=== PATIENT | female | born 1950 | race Caucasian/White ===

== ENCOUNTER → 2018-02-18 | Outpatient (CLI) | payer OTHER ==
--- NOTE | 2018-02-20 09:35 | MM ---
Reason for exam: screening (asymptomatic). Last mammogram was performed 2 years ago. History: Patient is postmenopausal. Benign excisional biopsy of the right breast, 2001. Took estrogen for 7 years beginning at age 41. Physical Findings: A clinical breast exam by your physician is recommended on an annual basis and results should be correlated with mammographic findings. MG Screening Mammo w CAD Bilateral CC and MLO view(s) were taken. Prior study comparison: February 14, 2016, bilateral MG screening mammo w CAD. April 04, 2014, bilateral MG screening mammo w CAD. There are scattered fibroglandular densities. No significant changes when compared with prior studies. ASSESSMENT: Benign, BI-RAD 2 RECOMMENDATION: Routine screening mammogram of both breasts in 1 year.
== END | disposition home or self-care (01) ==
LOC: RADMAMWWP 12:57
PROVIDERS: ATTEND Family Medicine
DX: Z12.31 Encounter for screening mammogram for malignant neoplasm of breast (principal)
CPT/HCPCS: 77067

== ENCOUNTER → 2018-08-24 | Outpatient (CLI) | payer OTHER ==
--- NOTE | 2018-08-24 19:43 | P.STRESS ---
- Stress Test Note Stress Test Results/Findings: Exam Performed: stress test Exam Date: 08/24/18 Reason for Exam: Chest Pain Height: 5 ft 5 in Weight: 76.204 kg Protocol: Jm Stage: 2 Duration of Exercise: 5:22 Resting Heart Rate: 64 Resting Blood Pressure: 145/101 Maximum Achieved Heart Rate: 146 Maximum Achieved Blood Pressure: 186/96 85% PMHR: 131 100% PMHR: 154 METS: 7.1 Technologist Comment: Stress Test Results/Findings: Baseline heart rate 64 beats a minute, Baseline blood pressure 1 4400 mmHg baseline 20 ECG shows sinus rhythm with normal cardiac intervals Exercise duration of 5 minutes 22 seconds normal heart rate and blood pressure response to excise No ECG or so ischemia No arrhythmias Low average exercise capacity
--- NOTE | 2018-08-24 20:06 | ECHOF ---
Referral Reason:R07.89 Other Chest Pain R06.02 SOB MEASUREMENTS -------- HEIGHT: 165.1 cm WEIGHT: 76.2 kg BP: IVSd: 0.8 cm (0.6 - 1.1) LVIDd: 3.9 cm (3.9 - 5.3) LVPWd: 1.1 cm (0.6 - 1.1) IVSs: 1.3 cm LVIDs: 1.8 cm LVPWs: 1.5 cm RVIDd: 3.0 cm (< 3.3) Ao Diam: 2.7 cm (2.0 - 3.7) LA Diam: 3.6 cm (2.7 - 3.8) AV Cusp: 1.8 cm (1.5 - 2.6) EPSS: 0.3 cm MV E Marco: 0.59 m/s MV DecT: 183 ms MV A Marco: 0.77 m/s MV E/A Ratio: 0.77 RAP: 5.00 mmHg RVSP: 29.32 mmHg MV EF SLOPE: 43.13 mm/s (70 - 150) MV EXCURSION: 10.02 mm (> 18.000) FINDINGS -------- Sinus rhythm. This was a technically good study. The left ventricular size is normal. Left ventricular wall thickness is normal. Overall left vent ricular systolic function is normal with, an EF between 55 - 60 %. The right ventricle is normal in size. Normal LA size by volume 22+/-6 ml/m2. The right atrial size is normal. Interatrial and interventricular septum intact. The aortic valve is trileaflet and appears structurally normal. Mild mitral regurgitation is present. Mild tricuspid regurgitation present. The right ventricular systolic pressure, as measured by Doppl er, is 29.32mmHg. There is no pulmonic regurgitation present. The aortic root size is normal. Normal inferior vena cava with normal inspiratory collapse consistent with estimated right atrial pre ssure of 5 mmHg. There is no pericardial effusion. CONCLUSIONS -------- 1. Sinus rhythm. 2. This was a technically good study. 3. The left ventricular size is normal. 4. Left ventricular wall thickness is normal. 5. Overall left ventricular systolic function is normal with, an EF between 55 - 60 %. 6. The right ventricle is normal in size. 7. Normal LA size by volume 22+/-6 ml/m2. 8. The right atrial size is normal. 9. Interatrial and interventricular septum intact. 10. The aortic valve is trileaflet and appears structurally normal. 11. Mild mitral regurgitation is present. 12. Mild tricuspid regurgitation present. 13. The right ventricular systolic pressure, as measured by Doppler, is 29.32mmHg. 14. There is no pulmonic regurgitation present. 15. The aortic root size is normal. 16. Normal inferior vena cava with normal inspiratory collapse consistent with estimated right atrial pressure of 5 mmHg. 17. There is no pericardial effusion. TILE SPRAYER: Mónica Laguna RDCS
== END | disposition home or self-care (01) ==
LOC: RADNMMAIN 09:56
PROVIDERS: ATTEND Family Medicine
DX: I08.1 Rheumatic disorders of both mitral and tricuspid valves (principal); E78.2 Mixed hyperlipidemia
CPT/HCPCS: 93017; 93306

== ENCOUNTER → 2019-02-25 | Outpatient (CLI) | payer OTHER ==
--- NOTE | 2019-02-25 12:07 | BD ---
EXAMINATION TYPE: Axial Bone Density DATE OF EXAM: 02/25/2019 COMPARISON: 02.14.2016 CLINICAL HISTORY: 68 YR OLD FEMALE...ICD-10 CODE: M89.9 BONE DISORDER Height: 64.5 Weight: 176 FRAX RISK QUESTIONS: Family History (Parent hip fracture): YES, MOTHER Secondary Osteoporosis: YES 3. Menopause before 45: YES RISK FACTORS HISTORY OF: Surgery to BOTH WRISTS....2012 Family History of Osteoporosis: YES, MOTHER...FX Active: YES Diet low in dairy products/other sources of calcium: YES Postmenopausal woman: YES AT AGE 41, Take estrogen and/or progesterone medications: YES, PREMARIN CREAM Hyperparathyroidism: NO Adrenal Insufficiency: NO MEDICATIONS: Additional Medications: TOPAMAX, OMEPRAZOLE VITAMINS, ATIVAN PRN, VIT D Additional History: REFLUX, ANXIETY EXAM MEASUREMENTS: Bone mineral densitometry was performed using the [employer] System. Bone mineral density as measured about the Lumbar spine is: ----- L1-L4(G/cm2): 0.924 T Score Values are as follows: ----- L1: -2.3 ----- L2: -1.4 ----- L3: -2.3 ----- L4: -2.6 ----- L1-L4: -2.1 Bone mineral density has: Increased 1.1% since study of: 02.14.2016 Bone mineral density about the R hip (g/cm2): 0.842 Bone mineral density about the L hip (g/cm2): 0.782 T Score values are as follows: -----R Neck: -1.8 -----L Neck: -2.3 -----R Total: -1.3 -----L Total: -1.8 Bone mineral density has: Decreased -0.5% since study of: 02.14.2016 FRAX%s: THERE IS A 20.8% CHANCE FOR A MAJOR OSTEOPOROTIC FX AND A 3.5% FOR HIP....PROBABILITY FOR H IP FX IN 10 YRS TIME IMPRESSION: Osteopenia (T Score between -2.5 and -1). There is slightly increased risk of fracture and the patient may be considered for treatment. Re-Screen 2-5 years. NOTE: T-SCORE=SD OF THE YOUNG ADULT MEAN.
--- NOTE | 2019-02-26 13:18 | MM ---
Reason for exam: screening (asymptomatic). Last mammogram was performed 1 year ago. History: Patient is postmenopausal. Benign excisional biopsy of the right breast, 2001. Took estrogen for 7 years beginning at age 41. Physical Findings: A clinical breast exam by your physician is recommended on an annual basis and results should be correlated with mammographic findings. MG 3D Screening Mammo W/Cad Bilateral CC and MLO view(s) were taken. Prior study comparison: February 18, 2018, bilateral MG screening mammo w CAD. February 14, 2016, bilateral MG screening mammo w CAD. There are scattered fibroglandular densities. Benign appearing bilateral calcifications. No suspicious abnormality. Post surgical change on the right. No significant changes when compared with prior studies. ASSESSMENT: Benign, BI-RAD 2 RECOMMENDATION: Routine screening mammogram of both breasts in 1 year.
== END | disposition home or self-care (01) ==
LOC: RADMAMWWP 08:04
PROVIDERS: ATTEND Family Medicine
DX: Z12.31 Encounter for screening mammogram for malignant neoplasm of breast (principal); M85.80 Other specified disorders of bone density and structure, unspecified site
CPT/HCPCS: 77063; 77067; 77080